=== PATIENT | male | born 1990 | race Caucasian/White ===

== ENCOUNTER 2016-09-10 18:50 | Emergency (ER) | payer BC ==
[2016-09-10 18:55] VITALS: BP 152/82; PULSE 63; TEMP 98.3; BMI 39.7
--- NOTE | 2016-09-10 20:00 | PDOC ---
History of Present Illness - General Chief Complaint: Injury Stated Complaint: INJURY Time Seen by Provider: 09/10/16 18:57 History Source: Patient Exam Limitations: No Limitations - History of Present Illness Initial Comments: 09/10/16 19:56 CHIEF COMPLAINT: Unstable right knee HISTORY OF PRESENT ILLNESS: Patient is a 26-year-old male denies any significant medical history currently no medication reports playing softball and his right knee buckled and he fell. He heard a pop to the right knee when he went to get up heard a pop again which was audible by others and pain was relieved now feels instability to right knee. Deformity. REVIEW OF SYSTEMS: GENERAL: Afebrile, A&O x3 RESPIRATORY: No cough, wheezing, or hemoptysis. CARDIAC: No CP or SOB MUSCULOSKELETAL: Pain to right anterior and posterior knee SKIN : No erythema, no edema, no bruising, no deformity. NEUROLOGICAL: Denies any numbness or tingling. PHYSICAL EXAM: GENERAL: The patient is awake, alert, and fully oriented, in no acute distress. HEAD: Normal with no signs of trauma. RESPIRATORY: Lungs clear bilaterally no rhonchi, rales, or wheezes CARDIAC: S1-S2 audible, no murmur rub or gallop EXTREMITIES: Decreased range of motion to right knee related to pain, no fluid appreciated, no bulge sign. No pain to superior or inferior patella. Negative drop test. Negative posterior leg test. No joint laxity noted, no ecchymosis, no deformity, no abrasions ,no edema. +3 popliteal pulse. Negative Homans sign. No calf pain or tenderness, no erythema or edema. MUSCULOSKELETAL: No spinal point tenderness. SKIN: Warm, Dry, normal turgor, no erythema, no edema no bruising. Past History - Past Medical History Allergies/Adverse Reactions: Allergies Allergy/AdvReac Type Severity Reaction Status Date / Time Penicillins Allergy Unknown Verified 09/10/16 18:52 Home Medications: Ambulatory Orders Ibuprofen [Motrin -] 600 mg PO QID #28 tablet 09/10/16 Nadolol 20 mg PO ASDIR 09/10/16 - Immunization History Immunization Up to Date: Yes - Psycho/Social/Smoking Cessation Hx Anxiety: No Suicidal Ideation: No Smoking History: Never smoked Hx Alcohol Use: No Drug/Substance Use Hx: No Substance Use Type: None *Physical Exam - Vital Signs Last Vital Signs Temp Pulse Resp BP Pulse Ox 98.3 F 63 18 152/82 97 09/10/16 18:52 09/10/16 18:52 09/10/16 18:52 09/10/16 18:52 09/10/16 18:52 ED Treatment Course - RADIOLOGY Radiology Studies Ordered: Category Date Time Status KNEE 2 POS-RIGHT [RAD] Stat Radiology 09/10/16 18:56 Taken Medical Decision Making - Medical Decision Making 09/10/16 19:57 A/P: Patient with unstable right knee sent for x-ray x-ray demonstrates no acute fracture dislocation or effusion. Possible temporary dislocation of patella which spontaneously resolved. Will place patient in knee immobilizer, Motrin for pain, ice and elevate. Follow-up with orthopedic pain persists. I discussed the physical exam findings, ancillary test results and final diagnoses with the patient. I answered all of the patient's questions. The patient was satisfied with the care received and felt comfortable with the discharge plan and treatment plan. The patient will call to arrange follow-up and will return to the Emergency Department with any new, persistent or worsening symptoms. *DC/Admit/Observation/Transfer Diagnosis at time of Disposition: Unstable right knee - Discharge Dispostion Disposition: HOME Condition at time of disposition: Good Admit: No - Prescriptions Prescriptions: Ibuprofen [Motrin -] 600 mg PO QID #28 tablet - Referrals Referrals: Airam Rodarte NP [Primary Care Provider] - Mono Munson MD [Staff Physician] - - Patient Instructions Printed Discharge Instructions: Knee Sprain Additional Instructions: 1. Please return to the emergency department with any redness, swelling, increased pain, or any other concerns. 2. Keep splint on for stability if weakness. 3. Please follow up in the office of within a week if pain persists. 4. No weightbearing 5. Ice and elevate when at rest. 6. Motrin for pain - Post Discharge Activity Work/School Note: Back to Work
== END 2016-09-10 20:04 | disposition home or self-care (01) ==
LOC: JERFT 18:50
PROC: 2W3LX1Z Immobilization of Right Lower Extremity using Splint (ICD-10-PCS; principal; 2016-09-10)
DX: M62.81 Muscle weakness (generalized) (principal); X58.XXXA Exposure to other specified factors, initial encounter; Y93.64 Activity, baseball; Y92.9 Unspecified place or not applicable
CPT/HCPCS: 73560-TC-RT; 99281-25

== ENCOUNTER 2016-12-07 07:34 | Day surgery (SDC) | payer BC ==
[2016-12-02 17:00] VITALS: BMI 39.0
--- NOTE | 2016-12-07 08:57 | HP ---
Satellite [facility] - Chief Complaint Chief Complaint: right knee pain - Past Medical History Allergies/Adverse Reactions: Allergies Allergy/AdvReac Type Severity Reaction Status Date / Time Penicillins Allergy Intermediate Rash Verified 12/07/16 08:09 - Current Medications Current Medications: Home Medications Medication Instructions Recorded Nadolol 20 mg PO ASDIR 09/10/16 Hydrocodone/Acetaminophen [[place] 1 each PO Q6H PRN #40 tablet MDD 4 12/07/16 5-325 Tablet] Satellite Physical Exam - Physical Examination Vital Signs: Vital Signs Period Temp Pulse Resp BP Sys/Cornejo Pulse Ox Last 24 Hr 98.5 F 59 20 126/75 98 General Appearance: Well Nourished, Well Developed, Alert & Oriented x3 ENT: Clear Lung: Normal air movement Heart: Regular rate & rhythm Extremities: Other (right knee- + swelling, + ttp, decrrom, + mcmurrays, + apleys, nvi MRI + mmt, partial chronic acl) Neurological: Intact, Alert, Oriented Satellite Impression/Plan - Impression/Plan Impression: right knee internal derangement Operative Procedure: right knee arthroscopy Date to be Performed: 12/07/16
[2016-12-07] MEDS ORDERED: LIDOCAINE HCL/PF 2% SDV 5ML VIAL ONE (09:25)
[2016-12-07] MEDS ORDERED: PROPOFOL 20 ML ONE ×2 (09:26)
[2016-12-07] MEDS ORDERED: MIDAZOLAM HCL 2 MG/2 ML SINGLE DOSE VIAL ONE (09:26)
[2016-12-07] MEDS ORDERED: ceFAZolin SODIUM 1 GM VIAL ONE ×2 (09:29→09:53)
[2016-12-07] MEDS ORDERED: ceFAZolin SODIUM 1 GM VIAL IVPB ONE (09:49)
[2016-12-07] MEDS ORDERED: ONDANSETRON 4 MG/2 ML VIAL IVPUSH PRN (10:03)
[2016-12-07] MEDS ORDERED: IBUPROFEN 800 MG/8 ML IJ IVPB PRN (10:03)
[2016-12-07] MEDS ORDERED: ACETAMINOPHEN 500 MG TABLET (FP) PO PRN (10:03)
[2016-12-07] MEDS ORDERED: LACTATED RINGERS SOLUTION 1,000 ML IV SCH (10:15)
[2016-12-07] MEDS ORDERED: BUPIVACAINE HCL/PF 0.5% (5MG/ML) 10 ML VIAL IJ ONE (10:25)
--- NOTE | 2016-12-07 10:35 | OP ---
Operative Note - Note: Operative Date: 12/07/16 Pre-Operative Diagnosis: right knee medial meniscus tear, chronic partial ACL tear Operation: right knee arthroscopy, partial medial meniscectomy, ACL thermal shrinkage/reconstruction Post-Operative Diagnosis: Same as Pre-op Surgeon: Roly Christian Anesthesiologist/ELECTRONIC DEVELOPMENT TECHNICIAN: Ann Robbins Anesthesia: General, Local Estimated Blood Loss (mls): 0 Drains, Volume Out (mls): 0 Blood Volume Replaced (mls): 0 Fluid Volume Replaced (mls): 500 Operative Report Dictated: Yes
[2016-12-07] MEDS ORDERED: ACETAMINOPHEN INJECTION 100 ML IVPB ONE (10:46)
[2016-12-07] MEDS ORDERED: IBUPROFEN 800 MG/8 ML IJ IVPB ONE (11:01)
[2016-12-07 11:21] VITALS: TEMP 98.9
[2016-12-07] MEDS ORDERED: ONDANSETRON 4 MG/2 ML VIAL ONE (11:49)
--- NOTE | 2016-12-07 11:59 | OP ---
DATE OF OPERATION: DATE OF DICTATION: 12/07/2016 PREOPERATIVE DIAGNOSES: Right knee medial meniscus tear and chronic partial anterior cruciate ligament tear. POSTOPERATIVE DIAGNOSES: Right knee medial meniscus tear and chronic partial anterior cruciate ligament tear. PROCEDURE: Right knee arthroscopy, partial medial meniscectomy, and anterior cruciate ligament thermal shrinkage/reconstruction. SURGEON: Roly Christian MD HAND EXPANSION ENVELOPE MAKER: None. ANESTHESIOLOGIST: Ann Robbins MD ANESTHESIA: LMA. Intraarticular injection of 20 mL of 0.5% Marcaine. DRAINS: None. COMPLICATIONS: None. SPECIMEN: Arthroscopic shavings. BLOOD LOSS: None. BLOOD GIVEN: None. FLUID REPLACEMENT: 500 mL. This patient is a 26-year-old male with a preoperative diagnosis of a complex tear of the posterior horn of the right knee medial meniscus and a chronic partial ACL tear. After understanding the potential risks, complications, alternatives, and benefits of surgical versus nonsurgical treatment, the patient elected to undergo this procedure. Patient was brought to the operating room. Peripheral IV placed. IV sedation given. IV Ancef 2 g was given and he had no allergic reaction. LMA anesthesia was induced. Ample Webril was placed around the right thigh. He was placed in the C-clamp leg luevano with ample padding throughout , including a Styrofoam ring. The right lower extremity was prepped and draped in sterile fashion, elevated, exsanguinated with an Esmarch bandage. The tourniquet inflated to 300 mmHg. A superomedial outflow portal was established under direct visualization. A lateral portal was established. An arthroscope was introduced into the joint and a medial portal was established under direct visualization using a spinal needle. A diagnostic arthroscopy was performed. The medial knee was intact. The patient had a very large tear of basically the entire posterior horn of the medial meniscus. A probe was introduced. Photographs were taken. There was a large radial flap. The torn portion was taken out with the right biter forceps and the curved shaver. Unfortunately, it was a subtotal medial meniscectomy as all the hoop fibers would be distracted and the tear went all the way to the periphery. Photographs were taken before and after. Otherwise, the medial compartment looked good with no osteoarthritis. The probe was used to the ACL and it was quite redundant and loose. The lateral compartment looked good. There was grade 1 chondromalacia of the lateral tibial plateau. The lateral femoral condyle looked good with no osteoarthritis. The lateral meniscus looked good. Next, our attention turned to the patellofemoral joint. There was a mild amount of grooving of the femoral trochlea but no significant osteophyte and it was tracking well. Therefore, attention turned back to the intercondylar notch. The ArthroCare wand was put on its lowest setting and in the "painting" technique I did an anterior cruciate ligament thermal shrinkage. I was able to see the shrinkage and then I put the probe in several times during the procedure to feel the tautness of the ACL until it was quite good and much improved. Photographs were taken. The area was copiously irrigated and washed out. All instrumentation removed. The arthroscopy portals were closed with 3-0 nylon sutures. Marcaine 0.5%, 20 mL, was introduced in the joint. The area was then washed, dried, covered with Xeroform, 4 x 4 gauze, Webril, and Jeremy bandage. The tourniquet was taken down after a total tourniquet time of 25 minutes. There were no complications during the case. The patient tolerated the procedure well and was brought to the ambulatory recovery room in stable condition. Lino [id number]
[2016-12-07 15:40] VITALS: BP 140/73; PULSE 58
--- NOTE | 2016-12-08 13:31 | PATH ---
Surgical Pathology Report Patient Name: JONAH VALENZUELA [facility]. Rec. #: [id number] /Age/Gender: 1990 (Age: 26) / M Account: [id number] Location: [facility] SURGICAL Taken: 12/07/2016 Received: 12/07/2016 Reported: 12/08/2016 Physicians: Roly Christian M.D. Specimen(s) Received RGHT KNEE SHAVINGS Clinical History Torn meniscus right knee Final Diagnosis SOFT TISSUE, RIGHT KNEE, ARTHROSCOPIC SHAVINGS: SYNOVIUM WITH MILD CHRONIC INFLAMMATION AND FIBROCARTILAGE WITH MYXOHYALINE DEGENERATION. Electronically Signed Joey Sher M.D. Gross Description Received in formalin, labeled "right knee shavings" is a 5.3 x 4.5 x 0.5 cm aggregate of boudreaux-yellow soft tissue fragments. A mill representative portion is submitted in one cassette. /12/07/2016 [facility]
== END 2016-12-07 14:00 | disposition home or self-care (01) ==
LOC: JASU-SURG 07:34
PROVIDERS: ATTEND Orthopaedic Surgery
PROC: 0MSN4ZZ Reposition Right Knee Bursa and Ligament, Percutaneous Endoscopic Approach (ICD-10-PCS; 2016-12-07)
PROC: 0SQC4ZZ Repair Right Knee Joint, Percutaneous Endoscopic Approach (ICD-10-PCS; principal; 2016-12-07 09:00)
DX: S83.241A Other tear of medial meniscus, current injury, right knee, initial encounter (principal); X58.XXXA Exposure to other specified factors, initial encounter; Y93.9 Activity, unspecified; Y92.9 Unspecified place or not applicable; Y99.9 Unspecified external cause status
CPT/HCPCS: 88304-TC; 94760; 97116-GP

== ENCOUNTER 2017-07-19 21:30 | Emergency (ER) | payer BC, OTHER ==
[2017-07-19 21:41] VITALS: BP 148/78; PULSE 67; TEMP 98.2; BMI 39.0
--- NOTE | 2017-07-19 22:10 | PDOC ---
History of Present Illness - General Chief Complaint: Chest Pain Stated Complaint: CHEST PAIN Time Seen by Provider: 07/19/17 21:49 History Source: Patient Exam Limitations: No Limitations - History of Present Illness Initial Comments: 07/19/17 22:10 This is a 27-year-old male who comes in complaining of intermittent brief episodes of sharp type of chest pain. Pain seems to be worse with a deep breath but patient denies any associated shortness of breath, nausea, diaphoresis or any other associated symptoms. Patient said the pain is been off-and-on for the last 2 days. Patient said episodes last a few seconds and then resolved. They are mid chest and sharp in nature. Patient has a history of hypertension but otherwise is healthy. Patient denies history of similar symptoms in the past. PAST MEDICAL HISTORY: no significant history PAST SURGICAL HISTORY: no significant history FAMILY HISTORY: no pertinant history SOCIAL HISTORY: Pt lives with family and is employed. MEDICATIONS: reviewed ALLERGIES: As per nursing notes Review of Systems General: No fevers or chills, no weakness, no weight loss HEENT: No change in vision. No sore throat,. No ear pain CardioVascular: No chest pain or shortness of breath Respiratory:No cough, or wheezing. Gastrointestinal: no nausea, vomitting, diarrhea or constipation, No rectal bleeding Genitourinary: No dysuria, hematuria, or frequency Musculoskeletal: No joint or muscle pain or swelling Neurologic: No headache, vertigo, dizziness or loss of consciousness Psychiatric: nor depression Skin: No rashes or easy bruising Endocrine: no increased thirst or abnormal weight change Allergic: no skin or latex allergy All other systems reviewed and normal Exam: General: Well-nourished well-developed individual, no acute distress HEENT: Throat: Normal, tonsils normal, no erythema or exudate Neck: Supple, no meningeal signs, no lymphadenopathy Eyes::Pupils equal reactive and round, extraocular motion intact Chest: Pain is reproduced on palpation Cardiac: S1-S2 normal, regular rate and rhythm, no murmurs rubs or gallops Respiratory: Lungs clear to auscultation bilateral Abdomen: Soft, nondistended, normal bowel sounds, nontender to palpation diffusely Extremities: Warm, dry, no cyanosis, clubbing, or edema Skin: No rashes Neuro: Alert and oriented x3, CN II - XII intact, nonfocal exam with normal strength, normal sensation, normal reflexes, normal gait, Psych: Normal mood and affect EKG shows sinus rhythm at a rate of 59, normal intervals, no acute ST-T wave changes normal EKG Assessment and plan: This is a 27-year-old male who comes in with some brief intermittent episodes of sharp type chest pain. Pain does appear to be skeletal muscle in nature. Patient had a cardiogram that was normal and showed no acute pathology. Patient was offered ibuprofen for the pain but did not want any. Patient was reassured that is not heart attack or anything serious and discharged home. Patient does have a primary care doctor follow-up with. Past History - Past Medical History Allergies/Adverse Reactions: Allergies Allergy/AdvReac Type Severity Reaction Status Date / Time Penicillins Allergy Intermediate Rash Verified 12/07/16 08:09 Home Medications: Ambulatory Orders Nadolol 20 mg PO ASDIR 09/10/16 Hydrocodone/Acetaminophen [Jessie 5-325 Tablet] 1 each PO Q6H PRN #40 tablet MDD 4 12/07/16 COPD: No GI Disorders: No Disorders: No HTN: Yes Liver Disease: No Thyroid Disease: No - Surgical History Orthopedic Surgery: Yes (FX R FOREARM) - Immunization History Immunization Up to Date: Yes - Suicide/Smoking/Psychosocial Hx Smoking History: Never smoked Have you smoked in the past 12 months: No Number of Cigarettes Smoked Daily: 0 Information on smoking cessation initiated: No Hx Alcohol Use: No Drug/Substance Use Hx: No Substance Use Type: Alcohol *Physical Exam - Vital Signs Last Vital Signs Temp Pulse Resp BP Pulse Ox 98.2 F 67 14 148/78 100 07/19/17 21:32 07/19/17 21:32 07/19/17 21:32 07/19/17 21:32 07/19/17 21:32 *DC/Admit/Observation/Transfer Diagnosis at time of Disposition: Chest pain, atypical - Discharge Dispostion Disposition: HOME Condition at time of disposition: Good Admit: No - Referrals - Patient Instructions Printed Discharge Instructions: DI for Atypical Chest Pain Additional Instructions: You can take Tylenol or Motrin as needed for the pain. Return to the emergency department immediately with ANY new, persistent or worsening symptoms. Continue any medications as previously prescribed by your physician. You should follow up with your primary doctor as soon as possible regarding today's emergency department visit. . Please make sure your doctor reviews the results of your emergency evaluation. Thank you for coming to the Emergency Department today for your care. It was a pleasure to see you today. Please note that your evaluation is INCOMPLETE until you follow-up with your doctor. - Post Discharge Activity
--- NOTE | 2017-07-23 15:30 | EKG ---
Test Reason : Blood Pressure : / mmHG Vent. Rate : 059 BPM Atrial Rate : 059 BPM P-R Int : 136 ms QRS Dur : 094 ms QT Int : 406 ms P-R-T Axes : 018 030 008 degrees QTc Int : 401 ms SINUS BRADYCARDIA OTHERWISE NORMAL ECG WHEN COMPARED WITH ECG OF 23-FEB-2016 17:59, NO SIGNIFICANT CHANGE WAS FOUND Confirmed by PARK BROOKE MD ([id number]) on 07/23/2017 3:30:37 PM Referred By: DR TAYLOR Confirmed By:PARK BROOKE MD
== END 2017-07-19 22:39 | disposition home or self-care (01) ==
LOC: FER 21:30
DX: R07.89 Other chest pain (principal); I10 Essential (primary) hypertension
CPT/HCPCS: 93005; 99283-25